=== PATIENT | female | born 1955 | race Caucasian/White ===

== ENCOUNTER → 2020-04-25 | Outpatient (CLI) | payer MEDICARE, OTHER, SELFPAY ==
[2020-04-25 16:46] LABS: Pathologist Comment May follow
[2020-04-25 19:42] LABS: Synovial Fld Mononuclear WBC % 87.2 %; Synovial Fld Polynuclear WBC # 0.018 10^3/uL; Synovial Fld Polynuclear WBC % 12.8 %
[2020-04-25 20:48] LABS: RBC /Synovial Fluid 23 /mm3 (0)
[2020-04-25 21:05] LABS: AUTO B FLUID DILUENT BKGD CT WBC <0.1 RBC <0.01 (W<.1,R<.01); CRYSTALS, BODY FLUID See PATH REV
[2020-04-25 21:06] LABS: Appearance /Synovial Fluid Sl hazy (CLEAR); Color / Synovial Fluid Yellow (Pale Yellow); Lymph 25 %; Monocyte /Synovial Fluid 63 %; Neutrophil 12 % (0-25); Source / Synovial Fluid NG; Source- Body Fluid SYNOVIAL
[2020-04-25 21:08] LABS: Body Fluid QC Type(s) BF1Q,BF2Q
[2020-04-26 11:36] LABS: Pathologist Review Reviewed
[2020-04-29 01:56] LABS: PROTEIN, SYNOVIAL FLUID 3.2 g/dL (.)
== END | disposition home or self-care (01) ==
PROVIDERS: Referring Provider Orthopaedic Surgery; Visit Provider Orthopaedic Surgery
DX: M17.12 Unilateral primary osteoarthritis, left knee (principal); S83.242D Other tear of medial meniscus, current injury, left knee, subsequent encounter
CPT/HCPCS: 84157; 87070; 87075; 87205; 89050; 89051; 89060